=== PATIENT | female | born 1980 | race Caucasian/White ===

== ENCOUNTER 2023-07-05 10:00 | Day surgery (SDC) | payer OTHER ==
[~2023-07-05] VITALS: Ht 160 cm; Wt 84.0 kg
[~2023-07-05 10:00] MED LIST: ASPI81TA26 PO; FAMO40TA3 PO; NS 1,000 ML IV ONE; SERT50TA29 PO
[2023-07-05] MEDS ORDERED: LIDOCAINE 2% 100MG/5ML SDV (FOR ANES.) As Ordered ONE (11:09)
[2023-07-05] MEDS ORDERED: propofoL 200 MG/20 ML VIAL As Ordered ONE ×2 (11:09→11:26)
[2023-07-05 11:34] VITALS: TEMP 97.8
[2023-07-05 11:56] VITALS: BP 128/76; O2SAT 98
== END 2023-07-05 12:16 | disposition home or self-care (01) ==
LOC: M OPP 10:00
PROVIDERS: ATTEND Internal Medicine Gastroenterology
DX: K29.70 Gastritis, unspecified, without bleeding (principal); K31.89 Other diseases of stomach and duodenum; R44.9 Unspecified symptoms and signs involving general sensations and perceptions; R10.13 Epigastric pain; R12 Heartburn; R13.10 Dysphagia, unspecified; Z79.1 Long term (current) use of non-steroidal anti-inflammatories (NSAID); Z79.82 Long term (current) use of aspirin; Z79.899 Other long term (current) drug therapy

== ENCOUNTER → 2023-08-21 | Outpatient (CLI) | payer OTHER ==
[~2023-08-21] MED LIST changes: -NS 1,000 ML IV ONE
== END ==
LOC: M RAD 10:59
PROVIDERS: ATTEND Nurse Practitioner Family
DX: R13.10 Dysphagia, unspecified (principal)